=== PATIENT | female | born 1990 | race African-American/Black ===

== ENCOUNTER 2024-05-03 20:14 | Emergency (ER) | payer OTHER ==
[~2024-05-03] VITALS: Ht 167.6 cm; Wt 72.6 kg
[2024-05-03] MEDS ORDERED: methylPREDNISolone SOD SUCC 125 MG/2 ML VIAL ONE (20:26)
[2024-05-03] MEDS ORDERED: diphenhydrAMINE 50 MG/1 ML VIAL ONE (20:26)
[2024-05-03] MEDS: diphenhydrAMINE 50 MG/1 ML VIAL IV ONE (20:28)
[2024-05-03] MEDS: methylPREDNISolone SOD SUCC 125 MG/2 ML VIAL IV ONE (20:28)
[2024-05-03] MEDS ORDERED: FAMOTIDINE. 20 MG/2 ML VIAL IV ONE (20:28)
[2024-05-03] MEDS: FAMOTIDINE. 20 MG/2 ML VIAL IV ONE (20:28)
[2024-05-03] MEDS: EPINEPHRINE-PF 1:1000 1 MG/ML AMPUL/VIAL SQ ONE (20:28)
[2024-05-03 20:47] LABS: BASOPHILS % (AUTO) 0.5 % (0.0-2.0); DIFFERENTIAL COMMENT 0; EOSINOPHILS % (AUTO) 0.4 % (0.0-7.0); HEMATOCRIT 40.6 % (31.2-41.9); HEMOGLOBIN 13.9 g/dL (10.9-14.3); LYMPHOCYTES # (AUTO) 3.3 K/uL (0.8-4.8); LYMPHOCYTES % (AUTO) 39.4 % (20.5-51.5); MEAN CORPUSCULAR HGB CONC 34 g/dL (32.3-35.6); MEAN CORPUSCULAR VOLUME 102.2 fL (75.5-95.3); MONOCYTES # (AUTO) 0.6 K/uL (0.1-1.30); MONOCYTES % (AUTO) 6.9 % (0.0-11.0); NEUTROPHILS # (AUTO) 4.4 K/uL (1.8-8.9); NEUTROPHILS % (AUTO) 52.8 % (38.5-71.5); PLATELET COUNT (AUTO) 290 K/uL (179-408); RED BLOOD CELL COUNT(AUTO) 3.97 MIL/uL (3.63-4.92); RED CELL DISTRIBUTION WIDTH 12.3 % (12.3-17.7); WHITE BLOOD COUNT (AUTO) 8.3 K/uL (3.8-11.8)
[2024-05-03 20:49] LABS: CALCIUM 8.9 mg/dL (8.5-10.1); CARBON DIOXIDE 24 mmol/L (21-32); CHLORIDE 104 mmol/L (98-107); GLUCOSE 106 mg/dL (74-106); POTASSIUM 3.7 mmol/L (3.5-5.1); SODIUM SERUM 137 mmol/L (136-145); UREA NITROGEN, BLOOD 21 mg/dL (7-18)
[2024-05-03 20:57] LABS: ALANINE AMINOTRANSFERASE 14 U/L (14-59); ALBUMIN 3.4 g/dL (3.4-5.0); ALKALINE PHOSPHATASE 47 U/L (50-136); ASPARTATE AMINOTRANSFERASE 11 U/L (15-37); BILIRUBIN,DIRECT 0.1 mg/dL (0.0-0.2); BILIRUBIN,TOTAL 0.4 mg/dL (0.2-1.0)
[2024-05-03] MEDS ORDERED: HYDR-501 PO (23:23)
[2024-05-03] MEDS ORDERED: PRED20TA PO (23:23)
[2024-05-03 23:32] VITALS: BP 110/77; TEMP 207.5; O2SAT 96
== END 2024-05-03 23:33 | disposition home or self-care (01) ==
LOC: ER 20:14
DX: T78.40XA Allergy, unspecified, initial encounter (principal); R94.31 Abnormal electrocardiogram [ECG] [EKG]; Z79.52 Long term (current) use of systemic steroids; Y92.89 Other specified places as the place of occurrence of the external cause
CPT/HCPCS: 99291; 96374; 96375; 80076; 80048; 85025; 84484; 36415; 93005; 96372; J2919; J1200; J3490; A4606; A4663